=== PATIENT | male | born 1965 | race Caucasian/White ===

== ENCOUNTER 2021-06-24 10:02 | Emergency (ER) | payer OTHER, SELFPAY ==
--- NOTE | 2021-06-24 10:05 | ED.SKABFB ---
HPI - Skin/Abscess/Foreign Bdy General Chief complaint: Skin/Abscess/Foreign Body Stated complaint: Skin Sore Time Seen by Provider: 06/24/21 10:05 Source: patient and RN notes reviewed History of Present Illness HPI narrative: Patient is a 56-year-old male who presents the urgent care with complaints of an abscess under the left arm. Patient states that he noticed a couple days ago after switching his deodorant on Thursday. Patient noticed some drainage and a lot of pain. Patient states that he does have fever to the area but denies any known fever, nausea, vomiting. Patient has been using baking soda and warm compress. No other acute complaints. No acute distress noted. Patient aware of the plan of care. Some parts of this dictation were generated by voice recognition software and may contain typographical and/or grammatical inaccuracies. Related Data Allergies Allergy/AdvReac Type Severity Reaction Status Date / Time No Known Allergies Allergy Verified 06/24/21 10:20 Review of Systems Review of Systems: CONSTITUTIONAL: Denies fever, chills, or sweats. EYES: Denies visual changes, redness, or discharge. ENT: Denies rhinorrhea, congestion, sore throat, or otalgia. CARDIOVASCULAR: Denies chest pain, palpitations, or edema. RESPIRATORY: Denies cough or dyspnea. GASTROINTESTINAL: Denies abdominal pain, nausea, vomiting, or diarrhea. GENITOURINARY: Denies dysuria or hematuria. SKIN: Reports of an abscess under the left arm MUSCULOSKELETAL: Denies back pain, joint pain, or myalgia. NEUROLOGIC: Denies headache, numbness, or weakness. All other systems reviewed are negative, except as documented in HPI. PMFSH Comments At the time of my signature, I reviewed and agree with the nursing past medical, surgical, social, and family history. There is no relevant family history pertinent to the patient complaint. Exam Narrative: GENERAL: This is a well-nourished, well-developed patient, in no apparent distress. HEAD: normocephalic, atraumatic. EYES: PERRL. Sclera clear/white. Vision is grossly intact. EARS: External ears normal NOSE: External nose normal with no obvious nasal discharge, nares without redness, no rhinorrhea. THROAT: Mucous membranes moist NECK: Neck supple SKIN: 6 x 3 cm fluctuant raised draining abscess to the left axilla NEURO: awake, alert, and oriented to person, place and time. There were no obvious focal neurologic abnormalities. EXTREMITIES: No clubbing, cyanosis, or edema. Course Course Level of Care: Express Care Visit Vital Signs Vital signs: Vital Signs Temperature 97.9 F 06/24/21 10:10 Pulse Rate 87 06/24/21 10:10 Respiratory Rate 20 06/24/21 10:10 Blood Pressure 125/80 06/24/21 10:10 Pulse Oximetry 98 06/24/21 10:10 Temperature 97.9 F 06/24/21 10:10 Pulse Rate 87 06/24/21 10:10 Respiratory Rate 20 06/24/21 10:10 Blood Pressure 125/80 06/24/21 10:10 Pulse Oximetry 98 06/24/21 10:10 Reviewed Procedures Abscess I/D Axilla: Side (if applicable): left Technique: incised with #11 blade Amount of fluid expressed (mL): 2 Packing used?: none I&D Results: Pus and Blood Abcess I&D Additional Comments: Cleansed with Betadine. Incision made with 11 blade to the abscess of the left axilla. Pus and bloody drainage initiated. Patient tolerated well. Collected sample. Neosporin and gauze covered. No complications. MDM - Skin/Abscess/Foreign Bdy MDM Narrative Medical decision making narrative: Advised patient complete the oral antibiotic regimen as prescribed. Be sure to eat and drink with medication. Use the prescription cream to the affected area and keep it covered if at risk of being soiled and or while working. May keep open to air while at home. Be aware of signs and symptoms of worsening infection such as increased redness, swelling, fever, nausea, vomiting. If such symptoms shall occur?go to the emergency room. We did send
[2021-06-24 10:10] VITALS: BP 125/80; PULSE 87; RESP 20; TEMP 36.6; O2SAT 98
== END 2021-06-24 10:56 | disposition home or self-care (01) ==
PROVIDERS: Emergency Provider Nurse Practitioner Family
DX: L02.412 Cutaneous abscess of left axilla (principal); Z86.19 Personal history of other infectious and parasitic diseases
CPT/HCPCS: 10060; 87070; 87147; 87186; 87205; 99213; G0463

== ENCOUNTER → 2023-03-11 12:54 | Outpatient (CLI) | payer OTHER, SELFPAY ==
--- NOTE | ~2023-03-11 | XR_ITS ---
EXAMINATION: XR cervical spine min 6V DATE: 03/11/2023 13:49 INDICATION: Cervical radiculopathy. Nerve entrapment. TECHNIQUE: 8 views of cervical spine standing including flexion and extension views were obtained. COMPARISON: None. FINDINGS: There is 9 degrees dextrocurvature of cervical spine. There is no abnormal motion with flex ion or extension. Vertebral body heights are normal. There is mildly decreased disc height at C4-C5, moderately decreased disc height at C5-C6, and severely decreased disc height at C6-C7. There is mult ilevel uncovertebral joint osteoarthritis, severe bilaterally at C6-C7. There is multilevel mild face t joint osteoarthritis. At C6-C7, there is moderate bilateral neural foraminal stenosis. There is mil d central canal stenosis at C6-C7. No prevertebral soft tissue swelling. IMPRESSION: 1. Severe cervical spondylosis. Reviewed, dictated and finalized at location A. OR HEALTH EDUCATOR
== END ==
PROVIDERS: PCP Chiropractor; Visit Provider Chiropractor
DX: G58.9 Mononeuropathy, unspecified (principal); M47.22 Other spondylosis with radiculopathy, cervical region
CPT/HCPCS: 72052

== ENCOUNTER 2023-09-02 11:04 | Emergency (ER) | payer OTHER, SELFPAY ==
[2023-09-02 11:11] VITALS: BP 131/83; PULSE 73; RESP 16; TEMP 36.8; O2SAT 98
--- NOTE | 2023-09-02 11:14 | ED.UPPEXIN ---
HPI - Extremity Injury (Upper) General Chief Complaint: Extremity Injury, Upper Stated Complaint: Swollen Right hand Time Seen by Provider: 09/02/23 11:15 Source: patient and RN notes reviewed Mode of arrival: ambulatory Limitations: no limitations History of Present Illness HPI narrative: 58 year old male presents with concern for right hand swelling, redness, warmth, tenderness. Reports that started swelling on Thursday. He denies any puncture wounds, insect bites. He reports he did get the hand caught in some chicken wire on Thursday, however it did not puncture the skin. He denies fever, body aches, chills, sweats. He denies decreased strength, sensation, range of motion in the hand or digits. MD complaint: injury to: right and hand Related Data Allergies Allergy/AdvReac Type Severity Reaction Status Date / Time No Known Allergies Allergy Verified 06/24/21 10:20 Review of Systems Review of Systems: CONSTITUTIONAL: Denies malaise, chills, sweats, or fever. CARDIOVASCULAR: Denies chest pain, palpitations, or edema. RESPIRATORY: Denies cough or dyspnea. SKIN: Denies rash or itching, bruising MUSCULOSKELETAL: Reports redness, warmth, swelling to the right hand NEUROLOGIC: Denies numbness, weakness All systems reviewed & are unremarkable except as noted in HPI and below PMFSH Comments At time of signature, agree with nursing past medical, surgical, social and family history. There is no relevant family history pertinent to the presenting complaint Exam Narrative: GENERAL: Well-appearing, well-nourished, and in no acute distress. HEAD: Normocephalic, atraumatic. EYES: PERRLA, conjunctivae clear NECK: Supple. CHEST: Speaks in full sentences. No respiratory distress. HEART: Regular rate and rhythm. Normal and equal peripheral pulses. EXTREMITIES: Right hand, digits have grossly normal strength and sensation, normal range of motion. Moderate edema erythema, warmth to the hand without open skin or ecchymosis. Normal sensation with sensitivity to light touch and pain. No point tenderness. No open wounds, no skin tenting, no devitalized tissue or atrophy, no trophic changes, no obvious deformity, alignment normal, nearby joints and structures intact. Distal pulses palpable and equal bilaterally, skin warm, dry, pink. Capillary refill less than 3 seconds. SKIN: Warm, dry, no rash. NEURO: Alert and oriented x3. PSYCH: Normal mood and affect Course Course Emergency Course: Patient is aware of diagnosis, understands and agrees to treatment plan. Anticipatory guidance given. Patient agrees to follow-up as directed and is aware of reasons to seek care at the emergency department. Portions of this record may have been created with voice recognition software Level of Care: Express Care Visit Vital Signs Vital signs: Reviewed. MDM - Extremity Injury (Upper) MDM Narrative Medical decision making narrative: Patients injury and pain is consistent with musculoskeletal etiology. No signs of neurological or vascular compromise on exam. Compartments and tissues are soft without signs of compartment syndrome. Pain is felt appropriate for further evaluation on an outpatient basis. Differential Diagnosis Differential diagnosis: Likely fracture of hand and other (cellulitis, inset bite, gout) Critical Care Time Critical Care Time Critical Care Time: No Discharge Plan Discharge Clinical Impression: Cellulitis Patient Disposition: Home, Self-Care Condition: Stable Instructions: Antibiotic Form, Cellulitis (ED) Additional Instructions: Please follow up with your Primary Care Doctor within 48-72 hours - call for an appointment. Rest and elevate affected area; apply moist heat 3-4 times daily for 10-15 minutes. Take Motrin 600mg every 8 hours with food for pain. Please take Antibiotics as directed. If you experience any worsening redness, swelling, streaking (red lines), fever or chills please go to the ER Prescript
== END 2023-09-02 11:25 | disposition home or self-care (01) ==
PROVIDERS: Emergency Provider Nurse Practitioner
DX: L03.113 Cellulitis of right upper limb (principal)
CPT/HCPCS: 99213; G0463

== ENCOUNTER 2023-10-05 15:15 | Outpatient (CLI) | payer OTHER, SELFPAY ==
[2023-10-05 18:50] LABS: Hematocrit 47.4 % (42.0-52.0); Hemoglobin 15.7 g/dL (14.0-18.0); Mean Corpuscular HGB Conc 33.1 g/dl (32-36); Mean Corpuscular Hemoglobin 31.5 pg (26-34); Mean Platelet Volume 10.6 fl (7.4-10.4); Platelet Count Result 243 k/mm3 (150-375); Red Blood Count 4.99 M/mm3 (4.6-6.20); Red Cell Distribution Width 13.7 % (11.5-14.5); White Blood Count 7.7 K/mm3 (4.5-10.0)
[2023-10-05 19:05] LABS: Alanine Aminotransferase 83 U/L (6-50); Albumin Level 4.6 g/dL (3.5-5.1); Alkaline Phosphatase 84 U/L (38-126); Anion Gap 6 mmol/L (4-12); Aspartate Amino Transferase 65 U/L (17-59); Bilirubin,Total 0.5 mg/dL (0.2-1.3); Blood Urea Nitrogen 16 mg/dL (9-20); Calcium 9.3 mg/dL (8.4-10.2); Carbon Dioxide 29 mmol/L (22-30); Chloride 105 mmol/L (98-107); Cholesterol 258 mg/dL (0-200); Estimated Glomerular Filt Rate > 60; Glucose 108 mg/dL (65-110); HDL Direct 32 mg/dL; Sodium 140 mmol/L (137-145); Triglycerides 395 mg/dL (<150)
[2023-10-05 19:16] LABS: LDL Cholesterol Direct 167 mg/dL
== END 2023-10-05 15:16 | disposition home or self-care (01) ==
LOC: ANHBWCLAB 15:17
PROVIDERS: PCP Nurse Practitioner Adult Health; Visit Provider Nurse Practitioner Adult Health
DX: Z13.9 Encounter for screening, unspecified (principal); Z12.5 Encounter for screening for malignant neoplasm of prostate
CPT/HCPCS: 36415; 80053; 80061; 84153; 84443; 85027; G0103

== ENCOUNTER 2024-02-01 06:37 | Outpatient (CLI) | payer OTHER, SELFPAY ==
--- NOTE | ~2024-02-01 | CT_ITS ---
Non-contrast Head CT History: Tinnitus Technique: Axial non-contrast imaging of the brain was performed. Dose reduction technique was used on this scan by utilizing automated exposure control and iterative reconstruction technique. The dose -length product (DLP) was 681.00 mGy-cm. Findings: There is no evidence of intracranial hemorrhage, mass lesion, or acute infarct. Brain par enchyma appears normal. The ventricles and subarachnoid spaces are normal in size. The calvarium ap pears normal. Mild left sphenoid sinus disease noted. The remaining visualized paranasal sinuses and mastoid air cells are clear. Impression: No intracranial abnormality seen. Mild left sphenoid sinus disease. Reviewed, dictated and finalized at location . Impression: No intracranial abnormality seen. Mild left sphenoid sinus disease.
--- NOTE | ~2024-02-01 | US_ITS ---
EXAMINATION: US carotid duplex BI DATE: 02/01/2024 07:51 INDICATION: Dizziness TECHNIQUE: Grayscale, color Doppler, and pulsed Doppler images of the cervical carotid arteries were obtained. The degree of vessel stenosis is placed in one of the following categories: normal, <50%, 5 0-69%, >=70% but less than near-occlusion, near-occlusion, or total occlusion. Note that percent sten osis relative to normal distal artery lumen diameter is indirectly measured from velocity measurement s as described by Eduardo, et al. Radiology 2003; 229:340-346. Notes: Normal: Peak systolic velocity <125 centimeters/sec and no plaque <50%. Peak systolic velocity <125 ( EDV <40; ICA/CCA PSV ratio <2.0; used these factors only a tandem lesions or low cardiac output or co ntralateral disease) 50-69 %: PSV 125-230 (EDV 40-100; ratio 2-4) >= 70% but less than near occlusion: PSV greater than 230 (EDV > 100; ratio> 4.0) Near Occlusion: PSV that is variable; markedly narrowed lumen Occlusion: Absent flow on color/spectral Doppler and no lumen on solomon scale. COMPARISON: None. FINDINGS: RIGHT: The right common carotid artery (CCA) peak systolic velocity (PSV) is 77 cm/s. The right internal car otid artery (ICA) PSV is 102 cm/s. The right ICA end-diastolic velocity (EDV) is 40 cm/s. The right I CA/CCA PSV ratio is 1.3. The external carotid artery (ECA) PSV is 115 cm/s. There is antegrade flow i n the right vertebral artery. LEFT: The left CCA PSV is 82 cm/s. The left ICA PSV is 75 cm/s. The left ICA EDV is 32 cm/s. The left ICA/C CA PSV ratio is 0.9. The ECA PSV is 76 cm/s. There is antegrade flow in the left vertebral artery. IMPRESSION: 1. Less than 50% stenosis in the right internal carotid artery by sonographic criteria. 2. Less than 50% stenosis in the left internal carotid artery by sonographic criteria. Reviewed, dictated and finalized at location B. IMPRESSION: 1. Less than 50% stenosis in the right internal carotid artery by sonographic janelle cuba. 2. Less than 50% stenosis in the left internal carotid artery by sonographic marcus marx.
== END 2024-02-01 06:38 | disposition home or self-care (01) ==
PROVIDERS: PCP Nurse Practitioner Adult Health; Visit Provider Nurse Practitioner Adult Health
DX: H93.19 Tinnitus, unspecified ear (principal); R51.9 Headache, unspecified; R09.89 Other specified symptoms and signs involving the circulatory and respiratory systems; I65.23 Occlusion and stenosis of bilateral carotid arteries
CPT/HCPCS: 70450; 93880

== ENCOUNTER 2025-01-05 11:55 | Outpatient (CLI) | payer OTHER, SELFPAY ==
--- OUTSIDE RECORDS SUMMARY | 2025-01-05 13:56 | XMS_ITS | Clinical Summary ---
Author Organization [facility] Address [address] [place] [address] Phone Care Team Providers Care Process Planner Name Role Phone Frida Sherman Primary Care Provider [phone] Allergies No known active allergies Medications fluticasone (FLONASE) 50 MCG/ACT Suspension SHAKE LQ AND U 1 SPR IEN D PRF COG OR RUNNY NOSE 1 01/28/2018 Active pravastatin (PRAVACHOL) 20 MG Tablet TK 1 T PO QD HS 3 02/03/2018 Active Active Problems Problem Noted Date Diagnosed Date Acquired stenosis of external ear canal, left Tinnitus, bilateral 03/25/2018 Vertigo 03/25/2018 Family History Medical History Relation Name Comments Aneurysm Father Hypertension Father No Known Problems Mother Relation Name Status Comments Father Mother Alive Social History Tobacco Use Types Packs/Day Years Used Date Smoking Tobacco: Former Cigarettes 1.5 30 Smokeless Tobacco: Never Comments:quit 2012 Alcohol Use Standard Drinks/Week Comments Yes 0 (1 standard drink = 0.6 oz pur e alcohol) occasionally Sex and Gender Information Value Date Recorded Sex Assigned at Not on file Legal Sex Male 11:24 PM CDT Gender Identity Not on file Sexual Orientation Not on file 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 Not on file Not on file Not on file Last Filed Vital Signs Vital Sign Reading Time Taken Comments Blood Pressure 122/90 03/25/2018 1:33 PM [employer]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 Pulse 68 03/25/2018 1:33 PM AL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 Temperature 36.2 C (97.2 F) 03/25/2018 1:25 PM AL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 Respiratory Rate 16 03/25/2018 1:25 PM AL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 Oxygen Saturation 97% 03/25/2018 1:33 PM AL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 Inhaled Oxygen Concentration - - Weight 89.4 kg (197 lb) 03/25/2018 1:25 PM AL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 Height 167.6 cm (5' 6) 03/25/2018 1:25 PM AL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 Body Mass Index 31.8 03/25/2018 1:25 PM AL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 Plan of Treatment Health Maintenance Due Date Last Done Comments Hepatitis C Virus (HCV) Screening 1965 TdaP Immunization 1965 Hepatitis B Immunization (1 of 3 - 19+ 3-dose series) 1984 Cologuard 2010 Immunochemical Fecal Occult Blood 2010 Pneumococcal Immunization (5 0+ years) (1 of 1 - PCV) 2015 Zoster Immunization (1 of 2) 2015 Influenza Immunization (#1) 2024 SARS-COV-2 Immunization ( season) 2024 Colonoscopy 03/08/2028 03/08/2018 Colorectal Cancer Screening 03/08/2028 Respiratory Syncytial Virus (RSV) Immunization (Adult) (1 - 1-dose 75+ series) 2040 Human Papillomavirus (HPV) Immunization Aged Out No longer eligible b ased on patient's age to complete this topic Meningococcal Immunization (ACWY) Aged Out No longer eligible based on patient's age to complete this topic Rotavirus Immunization Aged Out No lo nger eligible based on patient's age to complete this topic Insurance [facility] Care Teams Process Planner Relationship Specialty Start Date End Date Frida Sherman PA [address] [address] PCP - General Adult Medicine 02/03/18
[2025-01-05 19:18] LABS: Hematocrit 46.3 % (42.0-52.0); Hemoglobin 15.0 g/dL (14.0-18.0); Mean Corpuscular HGB Conc 32.4 g/dl (32-36); Mean Corpuscular Hemoglobin 31.3 pg (26-34); Mean Corpuscular Volume 96.5 fl (80-100); Platelet Count Result 243 k/mm3 (150-375); Red Blood Count 4.80 M/mm3 (4.6-6.20); White Blood Count 8.3 K/mm3 (4.5-10.0)
[2025-01-05 19:36] LABS: Alanine Aminotransferase 54 U/L (6-50); Albumin Level 4.4 g/dL (3.5-5.1); Alkaline Phosphatase 68 U/L (38-126); Anion Gap 7 mmol/L (4-12); Aspartate Amino Transferase 59 U/L (17-59); Bilirubin,Total 0.6 mg/dL (0.2-1.3); Blood Urea Nitrogen 17 mg/dL (9-20); Calcium 9.1 mg/dL (8.4-10.2); Carbon Dioxide 28 mmol/L (22-30); Chloride 103 mmol/L (98-107); Cholesterol 238 mg/dL (0-200); Estimated Glomerular Filt Rate > 60; Glucose 92 mg/dL (65-110); HDL Direct 37 mg/dL; Potassium 4.6 mmol/L (3.4-5.0); Sodium 138 mmol/L (137-145); Total Protein 7.3 g/dL (6.3-8.2); Triglycerides 124 mg/dL (<150)
[2025-01-05 20:11] LABS: Prostate Specific Antigen 0.9 ng/mL (< OR = 4.0); Thyroid Stimulating Hormone 0.736 uIU/mL (0.465-4.680)
== END 2025-01-05 11:56 | disposition home or self-care (01) ==
LOC: ANHBWCLAB 11:56
PROVIDERS: PCP Nurse Practitioner Adult Health; Visit Provider Nurse Practitioner Adult Health
DX: Z00.00 Encounter for general adult medical examination without abnormal findings (principal); Z12.5 Encounter for screening for malignant neoplasm of prostate
CPT/HCPCS: 36415; 80053; 80061; 84153; 84443; 85027; G0103